=== PATIENT | female | born 1990 ===

== ENCOUNTER 2016-10-30 18:06 | Emergency (ER) | payer OTHER | END 2016-10-30 20:01 | disposition home or self-care (01) | LOC: ED 18:06 | DX: M26.602 Left temporomandibular joint disorder, unspecified (principal); F17.210 Nicotine dependence, cigarettes, uncomplicated; Z88.0 Allergy status to penicillin; Z79.1 Long term (current) use of non-steroidal anti-inflammatories (NSAID) ==